=== PATIENT | male | born 1980 | race Caucasian/White ===

== ENCOUNTER 2020-11-18 19:27 | Inpatient (IN) | payer MEDICAID, MEDICARE ==
[~2020-11-18] VITALS: Ht 172.7 cm; Wt 74.9 kg
[2020-11-18] MEDS ORDERED: LEVETIRACETAM 500MG PREMIX 100 ML IV ONE (19:45)
[2020-11-18] MEDS ORDERED: LORAZEPAM 2MG/ML CPJ IV ONE (19:45)
[2020-11-18 21:54] LABS: BASOPHILS % 0.4 % (0.0-2.0); EOSINOPHILS % 0.7 % (0.0-5.0); HEMATOCRIT. 40.4 % (42.0-52.0); HEMOGLOBIN. 13.8 g/dL (14.0-18.0); LYMPHOCYTES % 20.9 % (20.0-50.0); MEAN CORPUSCULAR HEMOGLOBIN 27.3 pg (28.0-32.0); MEAN CORPUSCULAR VOLUME 80.3 fL (80.0-94.0); MEAN PLATELET VOLUME 8.9 fl (7.4-10.4); MONOCYTES % 7.5 % (2.0-8.0); NEUTROPHILS % 70.5 % (40.0-76.0); PLATELET 185 x1000/uL (130-400); RED BLOOD CELL COUNT 5.04 mill/uL (4.7-6.1); RED CELL DISTRIBUTION WIDTH 15.5 % (11.6-14.6)
[2020-11-18 22:02] LABS: CHLORIDE 109 mEq/L (98-107)
[2020-11-18 22:07] LABS: ETHANOL BLOOD < 10 mg/dL
[2020-11-19] VITALS (7 sets, daily range): BP systolic 123–154; BP diastolic 74–124
[2020-11-19 05:58] LABS: CLARITY URINE CLEAR (CLEAR); COLOR URINE YELLOW (YELLOW); KETONES URINE NEGATIVE (NEGATIVE); LEUKOCYTE ESTERASE URINE NEGATIVE (NEGATIVE); NITRITE URINE NEGATIVE (NEGATIVE); OCCULT BLOOD URINE NEGATIVE (NEGATIVE); PH URINE 7.5 (4.5-8.0); PROTEIN URINE TRACE (NEGATIVE); SPECIFIC GRAVITY URINE 1.019 (1.005-1.030)
[2020-11-19 06:14] LABS: *AMPHETAMINES SCREEN URINE NEGATIVE (NEGATIVE)
[2020-11-19 06:15] LABS: *BARBITURATES SCREEN URINE NEGATIVE (NEGATIVE); *BENZODIAZEPINES SCREEN URINE NEGATIVE (NEGATIVE); *COCAINE SCREEN URINE NEGATIVE (NEGATIVE); METHADONE URINE SCREEN NEGATIVE (NEGATIVE); OPIATES URINE SCREEN NEGATIVE (NEGATIVE); PHENCYCLIDINE URINE SCREEN NEGATIVE (NEGATIVE)
[2020-11-19 06:16] LABS: CANNABINOID URINE SCREEN PRESUMTIVE POSITIVE (NEGATIVE)
[2020-11-19] MEDS: LORAZEPAM 2MG/ML CPJ IV NR ×2 (09:37→11:55)
[2020-11-19] MEDS ORDERED: OMEPRAZOLE 20MG CAPSULE EXTENDED RELEASE PO SCH (10:30)
[2020-11-19] MEDS ORDERED: LEVETIRACETAM 500MG TABLET PO SCH (10:30)
[2020-11-19] MEDS ORDERED: ONDANSETRON HCL 4MG/2ML INJ IV PRN (10:45)
[2020-11-19] MEDS ORDERED: ACETAMINOPHEN 325MG TABLET PO PRN (10:45)
[2020-11-19] MEDS ORDERED: DEXT 5%/0.45% NACL 1000ML 1,000 ML IV SCH (10:45)
[2020-11-19] MEDS ORDERED: LORAZEPAM 2MG/ML CPJ IV PRN (10:45)
[2020-11-19] MEDS ORDERED: LEVETIRACETAM 250 MG in SODIUM CHLORIDE 0.9% 100 ML IV SCH (11:30)
[2020-11-19] MEDS ORDERED: LEVETIRACETAM 1000MG PREMIX 100 ML IV SCH (13:00)
== END 2020-11-19 14:30 | disposition left against medical advice (07) | DRG 53 ==
LOC: ER 19:27 → EDBD 19:27 → 6EST 11-19 02:10 → ENRESERV 11-19 07:34 → 6EST 11-19 09:14 → 5EST 11-19 10:24
PROVIDERS: ADMIT Internal Medicine; ATTEND Internal Medicine
DX: G40.909 Epilepsy, unspecified, not intractable, without status epilepticus (principal); K85.90 Acute pancreatitis without necrosis or infection, unspecified; F12.90 Cannabis use, unspecified, uncomplicated; Z53.21 Procedure and treatment not carried out due to patient leaving prior to being seen by health care provider; Z82.49 Family history of ischemic heart disease and other diseases of the circulatory system; Z91.19 Patient's noncompliance with other medical treatment and regimen
CPT/HCPCS: 36415; 74176; 80053; 80305; 80307; 80320; 80329; 81003; 83605; 84484; 85025; 93005; 99285; C1893; J1953; J2060; J2405; G0480

== ENCOUNTER 2020-11-20 02:56 | Emergency (ER) | payer MEDICAID ==
[~2020-11-20] VITALS: Ht 170.2 cm; Wt 82.0 kg
[2020-11-20 03:47] LABS: BASOPHILS % 0.4 % (0.0-2.0); EOSINOPHILS % 0.4 % (0.0-5.0); HEMATOCRIT. 44.5 % (42.0-52.0); HEMOGLOBIN. 14.5 g/dL (14.0-18.0); LYMPHOCYTES % 16.7 % (20.0-50.0); MEAN CORPUSCULAR HEMOGLOBIN 26.6 pg (28.0-32.0); MEAN PLATELET VOLUME 8.3 fl (7.4-10.4); MONOCYTES % 6.3 % (2.0-8.0); NEUTROPHILS % 76.2 % (40.0-76.0); PLATELET 222 x1000/uL (130-400); RED BLOOD CELL COUNT 5.43 mill/uL (4.7-6.1); RED CELL DISTRIBUTION WIDTH 15.8 % (11.6-14.6)
[2020-11-20 03:54] LABS: CHLORIDE 103 mEq/L (98-107)
[2020-11-20 03:57] LABS: ETHANOL BLOOD < 10 mg/dL; INR 1.1; PROTHROMBIN TIME 11.7 sec (9.6-11.0)
[2020-11-20] MEDS: FAMOTIDINE 20MG/2ML VIAL IV STA (04:20)
[2020-11-20] MEDS: KETOROLAC 30MG/ML VIAL IV STA (04:20)
[2020-11-20] MEDS: LORAZEPAM 2MG/ML CPJ IV ONE ×2 (04:21)
[2020-11-20] MEDS: SODIUM CHLORIDE 0.9% 1,000 ML IV ONE (04:21)
[2020-11-20] MEDS: LEVETIRACETAM 1000MG PREMIX 100 ML IV NR (05:21)
[2020-11-20] MEDS: ACETAMINOPHEN 325MG TABLET PO ONE (12:30)
[2020-11-20 18:34] VITALS: BP 129/76
== END 2020-11-20 18:44 | disposition left against medical advice (07) ==
LOC: ER 03:02 → EDBEDREQTM 04:21 → EDBEDREQ 05:35 → EDBEDREQTM 05:35 → CANBEDREQ 18:42 → ER 18:44
DX: R56.9 Unspecified convulsions (principal); K85.90 Acute pancreatitis without necrosis or infection, unspecified
CPT/HCPCS: 36415; 70450; 71045; 74018; 80053; 80320; 82962; 83690; 85025; 85610; 96361; 96374; 96375; 99291; J1885; J1953; J2060; J3490; J7030; Z7610; 99285; G0480

== ENCOUNTER 2021-03-08 12:43 | Emergency (ER) | payer MEDICARE ==
[~2021-03-08] VITALS: Ht 167.6 cm; Wt 118.0 kg
[~2021-03-08 12:43] MED LIST: FAMO20TA8 PO; LEVE10006 PO; LEVE250T2 PO; ONDA8TAB13 PO
[2021-03-08 13:07] VITALS: BP 155/95
== END 2021-03-08 14:52 | disposition left against medical advice (07) ==
LOC: ER 12:43
DX: Z53.21 Procedure and treatment not carried out due to patient leaving prior to being seen by health care provider (principal); R56.9 Unspecified convulsions

== ENCOUNTER 2021-03-24 09:36 | Emergency (ER) | payer MEDICARE ==
[~2021-03-24] VITALS: Ht 167.6 cm; Wt 109.0 kg
[2021-03-24] MEDS ORDERED: ONDANSETRON HCL 4MG/2ML INJ IV STA (09:55)
[2021-03-24] MEDS ORDERED: KETOROLAC 30MG/ML VIAL IV STA (09:55)
[2021-03-24] MEDS ORDERED: SODIUM CHLORIDE 0.9% 1,000 ML IV ONE (10:00)
[2021-03-24 10:41] LABS: BASOPHILS % 0.3 % (0.0-2.0); EOSINOPHILS % 0.7 % (0.0-5.0); HEMATOCRIT. 46.2 % (42.0-52.0); HEMOGLOBIN. 15.3 g/dL (14.0-18.0); LYMPHOCYTES % 13.1 % (20.0-50.0); MEAN CORPUSCULAR HEMOGLOBIN 27.3 pg (28.0-32.0); MEAN CORPUSCULAR VOLUME 82.3 fL (80.0-94.0); MEAN PLATELET VOLUME 8.5 fl (7.4-10.4); MONOCYTES % 5.4 % (2.0-8.0); NEUTROPHILS % 80.5 % (40.0-76.0); PLATELET 193 x1000/uL (130-400); RED BLOOD CELL COUNT 5.62 mill/uL (4.7-6.1); RED CELL DISTRIBUTION WIDTH 15.4 % (11.6-14.6)
[2021-03-24 10:48] LABS: CHLORIDE 103 mEq/L (98-107)
[2021-03-24 10:54] LABS: ETHANOL BLOOD < 10 mg/dL
[2021-03-24] MEDS ORDERED: DICYCLOMINE HCL 10MG/ML 2ML AMP IM ONE (11:15)
[2021-03-24 13:47] LABS: INR 1.1; PROTHROMBIN TIME 11.3 sec (9.6-11.0)
[2021-03-24] MEDS ORDERED: OMEP20CA14 MT (14:35)
[2021-03-24 16:44] VITALS: BP 143/90
== END 2021-03-24 16:40 | disposition home or self-care (01) ==
LOC: ER 09:46
DX: R10.9 Unspecified abdominal pain (principal); R11.10 Vomiting, unspecified; R56.9 Unspecified convulsions
CPT/HCPCS: 36415; 80053; 80320; 83690; 85025; 85610; 96361; 96372; 96374; 96375; 99285; J0500; J1885; J2405; J7030; G0480

== ENCOUNTER 2021-03-28 12:25 | Emergency (ER) | payer MEDICARE ==
[~2021-03-28] VITALS: Ht 170.2 cm; Wt 170.0 kg
[~2021-03-28 12:25] MED LIST changes: +OMEP20CA14 MT
[2021-03-28 12:30] VITALS: BP 138/91
[2021-03-28] MEDS ORDERED: FAMOTIDINE 20MG/2ML VIAL IV STA (15:36)
[2021-03-28] MEDS ORDERED: SODIUM CHLORIDE 0.9% 1,000 ML IV ONE (15:45)
[2021-03-28] MEDS ORDERED: HALOPERIDOL LACTATE 5MG/ML VIAL IM ONE (15:45)
== END 2021-03-28 15:40 | disposition left against medical advice (07) ==
LOC: ER 12:25
DX: R10.84 Generalized abdominal pain (principal); R11.10 Vomiting, unspecified; Z53.21 Procedure and treatment not carried out due to patient leaving prior to being seen by health care provider
CPT/HCPCS: J7030

== ENCOUNTER 2021-04-05 10:11 | Emergency (ER) | payer MEDICARE ==
[~2021-04-05] VITALS: Ht 167.6 cm; Wt 84.0 kg
[2021-04-05] MEDS ORDERED: MORPHINE SULFATE 4 MG/ML CPJ (NOT FOR IM USE) IV STA (10:36)
[2021-04-05] MEDS ORDERED: ONDANSETRON HCL 4MG/2ML INJ IV STA (10:36)
[2021-04-05] MEDS ORDERED: SODIUM CHLORIDE 0.9% 1,000 ML IV ONE (10:45)
[2021-04-05 10:50] LABS: BASOPHILS % 0.6 % (0.0-2.0); EOSINOPHILS % 1.8 % (0.0-5.0); HEMATOCRIT. 47.8 % (42.0-52.0); HEMOGLOBIN. 15.8 g/dL (14.0-18.0); LYMPHOCYTES % 24.5 % (20.0-50.0); MEAN CORPUSCULAR HEMOGLOBIN 27.3 pg (28.0-32.0); MEAN CORPUSCULAR VOLUME 82.7 fL (80.0-94.0); MEAN PLATELET VOLUME 8.4 fl (7.4-10.4); MONOCYTES % 5.9 % (2.0-8.0); NEUTROPHILS % 67.2 % (40.0-76.0); PLATELET 189 x1000/uL (130-400); RED BLOOD CELL COUNT 5.78 mill/uL (4.7-6.1); RED CELL DISTRIBUTION WIDTH 15.7 % (11.6-14.6)
[2021-04-05 10:56] LABS: CHLORIDE 105 mEq/L (98-107)
[2021-04-05 11:02] LABS: ETHANOL BLOOD < 10 mg/dL
[2021-04-05 15:00] VITALS: BP 105/56
== END 2021-04-05 15:05 | disposition home or self-care (01) ==
LOC: ER 10:14
DX: R10.9 Unspecified abdominal pain (principal); R19.7 Diarrhea, unspecified; R56.9 Unspecified convulsions
CPT/HCPCS: 36415; 80053; 80320; 83690; 85025; 93005; 96361; 96374; 96375; 99284; J2270; J2405; J7030; G0480

== ENCOUNTER 2021-04-13 10:33 | Emergency (ER) | payer MEDICARE ==
[~2021-04-13] VITALS: Ht 172.7 cm; Wt 75.0 kg
[2021-04-13 10:41] VITALS: BP 162/127
[2021-04-13] MEDS ORDERED: FAMOTIDINE 20MG/2ML VIAL IV STA (11:10)
[2021-04-13] MEDS ORDERED: ONDANSETRON HCL 4MG/2ML INJ IV STA (11:10)
[2021-04-13] MEDS ORDERED: SODIUM CHLORIDE 0.9% 1,000 ML IV ONE (11:15)
[2021-04-13 11:30] LABS: BASOPHILS % 0.7 % (0.0-2.0); EOSINOPHILS % 1.4 % (0.0-5.0); HEMATOCRIT. 43.4 % (42.0-52.0); HEMOGLOBIN. 14.3 g/dL (14.0-18.0); LYMPHOCYTES % 21.9 % (20.0-50.0); MEAN CORPUSCULAR HEMOGLOBIN 27.4 pg (28.0-32.0); MEAN PLATELET VOLUME 8.7 fl (7.4-10.4); MONOCYTES % 7.3 % (2.0-8.0); NEUTROPHILS % 68.7 % (40.0-76.0); PLATELET 162 x1000/uL (130-400); RED BLOOD CELL COUNT 5.23 mill/uL (4.7-6.1); RED CELL DISTRIBUTION WIDTH 15.5 % (11.6-14.6)
[2021-04-13 11:44] LABS: CHLORIDE 107 mEq/L (98-107)
== END 2021-04-13 12:20 | disposition left against medical advice (07) ==
LOC: ER 10:33
DX: R10.9 Unspecified abdominal pain (principal); R11.2 Nausea with vomiting, unspecified; F41.9 Anxiety disorder, unspecified; R56.9 Unspecified convulsions
CPT/HCPCS: 36415; 80053; 83690; 85025; 93005; 99284; J7030

== ENCOUNTER 2021-04-21 11:44 | Emergency (ER) | payer MEDICARE ==
[~2021-04-21] VITALS: Ht 172.7 cm; Wt 85.0 kg
[2021-04-21] MEDS ORDERED: ONDANSETRON HCL 4MG/2ML INJ IV STA (12:27)
[2021-04-21] MEDS ORDERED: MORPHINE SULFATE 4 MG/ML CPJ (NOT FOR IM USE) IV STA (12:27)
[2021-04-21] MEDS ORDERED: SODIUM CHLORIDE 0.9% 1,000 ML IV ONE ×2 (12:30→15:00)
[2021-04-21 12:44] LABS: BASOPHILS % 0.7 % (0.0-2.0); EOSINOPHILS % 1.1 % (0.0-5.0); HEMATOCRIT. 47.3 % (42.0-52.0); HEMOGLOBIN. 15.3 g/dL (14.0-18.0); LYMPHOCYTES % 21.6 % (20.0-50.0); MEAN CORPUSCULAR HEMOGLOBIN 27.1 pg (28.0-32.0); MEAN CORPUSCULAR VOLUME 84.1 fL (80.0-94.0); MEAN PLATELET VOLUME 9.2 fl (7.4-10.4); MONOCYTES % 4.8 % (2.0-8.0); NEUTROPHILS % 71.8 % (40.0-76.0); PLATELET 242 x1000/uL (130-400); RED BLOOD CELL COUNT 5.62 mill/uL (4.7-6.1); RED CELL DISTRIBUTION WIDTH 15.9 % (11.6-14.6)
[2021-04-21 12:50] LABS: CHLORIDE 107 mEq/L (98-107)
[2021-04-21] MEDS ORDERED: KETOROLAC 30MG/ML VIAL IV ONE (15:00)
[2021-04-21] MEDS ORDERED: IBUP-2028 MT (17:54)
[2021-04-21 18:00] VITALS: BP 134/74
== END 2021-04-21 19:04 | disposition home or self-care (01) ==
LOC: ER 11:44
DX: K86.1 Other chronic pancreatitis (principal); F12.10 Cannabis abuse, uncomplicated; Z87.19 Personal history of other diseases of the digestive system; Z86.59 Personal history of other mental and behavioral disorders
CPT/HCPCS: 36415; 80053; 80320; 82248; 83690; 85025; 96361; 96374; 96375; 99285; J1885; J2270; J2405; J7030; 80076; G0480

== ENCOUNTER 2021-04-24 07:52 | Emergency (ER) | payer MEDICARE, MEDICAID ==
[~2021-04-24] VITALS: Ht 167.6 cm; Wt 91.0 kg
[~2021-04-24 07:52] MED LIST changes: +IBUP-2028 MT
[2021-04-24] MEDS ORDERED: ONDANSETRON HCL 4MG/2ML INJ IV STA (08:08)
[2021-04-24] MEDS ORDERED: HALOPERIDOL LACTATE 5MG/ML VIAL IM ONE (08:15)
[2021-04-24] MEDS ORDERED: ACETAMINOPHEN 325MG TABLET PO ONE (08:15)
[2021-04-24] MEDS ORDERED: SODIUM CHLORIDE 0.9% 1,000 ML IV ONE (08:15)
[2021-04-24] MEDS ORDERED: KETOROLAC 15MG/ML VIAL IV ONE (08:15)
[2021-04-24 08:33] LABS: BASOPHILS % 0.4 % (0.0-2.0); EOSINOPHILS % 1.9 % (0.0-5.0); HEMATOCRIT. 44.3 % (42.0-52.0); HEMOGLOBIN. 14.4 g/dL (14.0-18.0); MEAN CORPUSCULAR VOLUME 83.2 fL (80.0-94.0); MEAN PLATELET VOLUME 8.5 fl (7.4-10.4); MONOCYTES % 5.8 % (2.0-8.0); NEUTROPHILS % 74.9 % (40.0-76.0); PLATELET 171 x1000/uL (130-400); RED BLOOD CELL COUNT 5.32 mill/uL (4.7-6.1); RED CELL DISTRIBUTION WIDTH 15.8 % (11.6-14.6)
[2021-04-24 08:36] LABS: CHLORIDE 104 mEq/L (98-107)
[2021-04-24 08:55] VITALS: BP 138/79
== END 2021-04-24 09:55 | disposition left against medical advice (07) ==
LOC: ER 07:52
DX: G89.29 Other chronic pain (principal); R10.13 Epigastric pain; K86.1 Other chronic pancreatitis; F41.9 Anxiety disorder, unspecified; G40.909 Epilepsy, unspecified, not intractable, without status epilepticus; F12.10 Cannabis abuse, uncomplicated
CPT/HCPCS: 36415; 80053; 83690; 85025; 93005; 96361; 96372; 96374; 96375; 99284; J1630; J1885; J2405

== ENCOUNTER 2021-04-29 22:20 | Inpatient (IN) | payer MEDICAID ==
[~2021-04-29] VITALS: Ht 172.7 cm; Wt 89.8 kg
[2021-04-30] VITALS (7 sets, daily range): BP systolic 102–146; BP diastolic 60–96
[2021-04-30] MEDS ORDERED: ONDANSETRON HCL 4MG/2ML INJ IV ONE ×3 (00:45→03:00)
[2021-04-30] MEDS ORDERED: LEVETIRACETAM 1000MG PREMIX 100 ML IV ONE (00:45)
[2021-04-30] MEDS ORDERED: SODIUM CHLORIDE 0.9% 1,000 ML IV ONE (00:45)
[2021-04-30 00:57] LABS: BASOPHILS % 0.3 % (0.0-2.0); EOSINOPHILS % 0.4 % (0.0-5.0); HEMATOCRIT. 46.4 % (42.0-52.0); HEMOGLOBIN. 15.4 g/dL (14.0-18.0); LYMPHOCYTES % 10.5 % (20.0-50.0); MEAN CORPUSCULAR HEMOGLOBIN 27.6 pg (28.0-32.0); MEAN CORPUSCULAR VOLUME 83.3 fL (80.0-94.0); MEAN PLATELET VOLUME 8.6 fl (7.4-10.4); MONOCYTES % 5.3 % (2.0-8.0); NEUTROPHILS % 83.5 % (40.0-76.0); PLATELET 227 x1000/uL (130-400); RED BLOOD CELL COUNT 5.57 mill/uL (4.7-6.1); RED CELL DISTRIBUTION WIDTH 16.1 % (11.6-14.6)
[2021-04-30] MEDS ORDERED: LEVETIRACETAM 500MG PREMIX 100 ML IV ONE (01:00)
[2021-04-30] MEDS ORDERED: LORAZEPAM 2MG/ML CPJ IV ONE (01:00)
[2021-04-30] MEDS ORDERED: LEVETIRACETAM 1,000 MG in SODIUM CHLORIDE 0.9% 100 ML IV SCH (01:00)
[2021-04-30 01:02] LABS: CHLORIDE 106 mEq/L (98-107)
[2021-04-30 01:06] LABS: ETHANOL BLOOD < 10 mg/dL
[2021-04-30] MEDS: LEVETIRACETAM 500MG PREMIX 100 ML IV SCH ×2 (01:18→01:47)
[2021-04-30 01:51] LABS: CLARITY URINE CLEAR (CLEAR); COLOR URINE YELLOW (YELLOW); KETONES URINE NEGATIVE (NEGATIVE); LEUKOCYTE ESTERASE URINE NEGATIVE (NEGATIVE); NITRITE URINE NEGATIVE (NEGATIVE); OCCULT BLOOD URINE TRACE (NEGATIVE); PH URINE 5.5 (4.5-8.0); PROTEIN URINE 2+ (NEGATIVE); SPECIFIC GRAVITY URINE 1.023 (1.005-1.030)
[2021-04-30] MEDS ORDERED: MORPHINE SULFATE 4 MG/ML CPJ (NOT FOR IM USE) IV ONE ×2 (02:00→03:00)
[2021-04-30 02:03] LABS: *BENZODIAZEPINES SCREEN URINE NEGATIVE (NEGATIVE); *COCAINE SCREEN URINE NEGATIVE (NEGATIVE); CANNABINOID URINE SCREEN PRESUMTIVE POSITIVE (NEGATIVE)
[2021-04-30 02:04] LABS: *AMPHETAMINES SCREEN URINE NEGATIVE (NEGATIVE); *BARBITURATES SCREEN URINE NEGATIVE (NEGATIVE); METHADONE URINE SCREEN NEGATIVE (NEGATIVE); OPIATES URINE SCREEN NEGATIVE (NEGATIVE); PHENCYCLIDINE URINE SCREEN NEGATIVE (NEGATIVE)
[2021-04-30] MEDS ORDERED: IOHEXOL-300 100 ML BOTTLE ONE (04:40)
[2021-04-30] MEDS ORDERED: LORAZEPAM 2MG/ML CPJ IV SCH (05:00)
[2021-04-30] MEDS ORDERED: CLONIDINE 0.1MG TABLET PO PRN (06:00)
[2021-04-30] MEDS ORDERED: NALOXONE HCL 0.4MG/ML VIAL IV PRN (07:15)
[2021-04-30] MEDS: ONDANSETRON HCL 4MG/2ML INJ IV PRN (07:29)
[2021-04-30] MEDS: MORPHINE SULFATE 2 MG/ML CPJ (NOT FOR IM USE) IV PRN ×4 (07:29→21:51)
[2021-04-30] MEDS ORDERED: LORAZEPAM 2MG/ML CPJ IV NR ×2 (12:45→17:00)
[2021-04-30] MEDS ORDERED: LEVETIRACETAM 1000MG PREMIX 100 ML IV NR (13:00)
[2021-04-30] MEDS: LEVETIRACETAM 1,000 MG in SODIUM CHLORIDE 0.9% 100 ML IV SCH (13:03)
[2021-04-30] MEDS ORDERED: MAGNESIUM/ALUMINUM HYDROXIDE/SIMETHICONE 30ML UDC PO PRN (13:15)
[2021-04-30] MEDS ORDERED: DEXTROSE 50% WATER 50ML SYRINGE IV PRN ×2 (13:15)
[2021-04-30] MEDS ORDERED: HYDROCODONE/ACETAMINOPHEN 5/325MG TABLET PO PRN (13:15)
[2021-04-30] MEDS ORDERED: ACETAMINOPHEN 325MG TABLET PO PRN (13:15)
[2021-04-30] MEDS: PANTOPRAZOLE SODIUM 40 MG/VIAL IV SCH (14:54)
[2021-04-30] MEDS: ENOXAPARIN 40MG/0.4ML SYR SUBCUT SCH (14:55)
[2021-04-30] MEDS: LORAZEPAM 2MG/ML CPJ IV PRN (16:33)
[2021-04-30] MEDS: BLOOD SUGAR DIAGNOSTIC STRIP TEST SCH ×2 (17:33→21:14)
[2021-04-30] MEDS: INSULIN LISPRO 100 UNITS/ML SUBCUT SCH ×2 (18:00→21:00)
[2021-04-30] MEDS ORDERED: PHENYTOIN SODIUM 1,000 MG in SODIUM CHLORIDE 0.9% 80 ML IV NR (18:00)
[2021-04-30] MEDS ORDERED: CEFTRIAXONE 1 G PREMIX 50 ML IV SCH (18:45)
[2021-04-30] MEDS: CEFTRIAXONE 1,000 MG in DEXTROSE 5% WATER 50 ML IV SCH (21:14)
[2021-05-01] VITALS (12 sets, daily range): BP systolic 113–144; BP diastolic 69–90
[2021-05-01] MEDS: LEVETIRACETAM 1,000 MG in SODIUM CHLORIDE 0.9% 100 ML IV SCH ×2 (00:23→09:56)
[2021-05-01] MEDS: ONDANSETRON HCL 4MG/2ML INJ IV PRN ×4 (06:13→19:25)
[2021-05-01] MEDS: MORPHINE SULFATE 2 MG/ML CPJ (NOT FOR IM USE) IV PRN ×3 (06:14→21:39)
[2021-05-01 07:27] LABS: BASOPHILS % 0.3 % (0.0-2.0); EOSINOPHILS % 1.1 % (0.0-5.0); HEMATOCRIT. 40.7 % (42.0-52.0); HEMOGLOBIN. 13.3 g/dL (14.0-18.0); LYMPHOCYTES % 27.4 % (20.0-50.0); MEAN CORPUSCULAR HEMOGLOBIN 27.3 pg (28.0-32.0); MEAN CORPUSCULAR VOLUME 83.4 fL (80.0-94.0); MEAN PLATELET VOLUME 8.7 fl (7.4-10.4); MONOCYTES % 8.8 % (2.0-8.0); NEUTROPHILS % 62.4 % (40.0-76.0); PLATELET 168 x1000/uL (130-400); RED BLOOD CELL COUNT 4.88 mill/uL (4.7-6.1); RED CELL DISTRIBUTION WIDTH 15.8 % (11.6-14.6)
[2021-05-01] MEDS: INSULIN LISPRO 100 UNITS/ML SUBCUT SCH ×4 (07:54→20:43)
[2021-05-01] MEDS: BLOOD SUGAR DIAGNOSTIC STRIP TEST SCH ×4 (07:54→20:32)
[2021-05-01 08:07] LABS: CHLORIDE 106 mEq/L (98-107)
[2021-05-01 08:17] LABS: PHOSPHORUS 2.9 mg/dL (2.5-4.9)
[2021-05-01 08:18] LABS: LDL CHOLESTEROL 91 mg/dL (5-100)
[2021-05-01 08:21] LABS: HDL CHOLESTEROL 32 mg/dL (40-59)
[2021-05-01 08:22] LABS: T4 FREE 1.04 ng/dL (0.76-1.46)
[2021-05-01] MEDS: ENOXAPARIN 40MG/0.4ML SYR SUBCUT SCH (09:00)
[2021-05-01] MEDS: PANTOPRAZOLE SODIUM 40 MG/VIAL IV SCH (09:56)
[2021-05-01] MEDS: LORAZEPAM 2MG/ML CPJ IV PRN ×3 (09:57→19:26)
[2021-05-01] MEDS: CEFTRIAXONE 1,000 MG in DEXTROSE 5% WATER 50 ML IV SCH (20:31)
[2021-05-01] MEDS: LEVETIRACETAM 1,500 MG in SODIUM CHLORIDE 0.9% 100 ML IV SCH (21:39)
[2021-05-01] MEDS: PHENYTOIN SODIUM 100MG/2ML VIAL IV SCH (21:40)
[2021-05-02] VITALS (10 sets, daily range): BP systolic 104–145; BP diastolic 53–95
[2021-05-02] MEDS: ONDANSETRON HCL 4MG/2ML INJ IV PRN (04:23)
[2021-05-02] MEDS: LORAZEPAM 2MG/ML CPJ IV PRN ×2 (04:23→11:52)
[2021-05-02] MEDS: MORPHINE SULFATE 2 MG/ML CPJ (NOT FOR IM USE) IV PRN ×2 (04:24→12:15)
[2021-05-02] MEDS: PHENYTOIN SODIUM 100MG/2ML VIAL IV SCH ×2 (05:33→14:07)
[2021-05-02 06:25] LABS: BASOPHILS % 0.5 % (0.0-2.0); EOSINOPHILS % 1.9 % (0.0-5.0); HEMATOCRIT. 41.2 % (42.0-52.0); HEMOGLOBIN. 13.7 g/dL (14.0-18.0); LYMPHOCYTES % 33.4 % (20.0-50.0); MEAN CORPUSCULAR HEMOGLOBIN 27.7 pg (28.0-32.0); MEAN CORPUSCULAR VOLUME 83.4 fL (80.0-94.0); MEAN PLATELET VOLUME 8.9 fl (7.4-10.4); MONOCYTES % 9.2 % (2.0-8.0); PLATELET 177 x1000/uL (130-400); RED BLOOD CELL COUNT 4.94 mill/uL (4.7-6.1); RED CELL DISTRIBUTION WIDTH 15.8 % (11.6-14.6)
[2021-05-02 06:29] LABS: CHLORIDE 105 mEq/L (98-107)
[2021-05-02 06:37] LABS: PHOSPHORUS 2.7 mg/dL (2.5-4.9)
[2021-05-02] MEDS: INSULIN LISPRO 100 UNITS/ML SUBCUT SCH ×3 (07:38→17:10)
[2021-05-02] MEDS: BLOOD SUGAR DIAGNOSTIC STRIP TEST SCH ×3 (07:38→17:10)
[2021-05-02] MEDS: LEVETIRACETAM 1,500 MG in SODIUM CHLORIDE 0.9% 100 ML IV SCH (08:26)
[2021-05-02] MEDS ORDERED: FAMOTIDINE 20MG/2ML VIAL IV SCH (09:00)
[2021-05-02] MEDS: ENOXAPARIN 40MG/0.4ML SYR SUBCUT SCH (09:40)
[2021-05-02] MEDS ORDERED: PHENYTOIN SODIUM 300 MG in SODIUM CHLORIDE 0.9% 50 ML IV NR (13:30)
[2021-05-02] MEDS ORDERED: ENOXAPARIN 30MG/0.3ML SYR SUBCUT SCH (21:00)
[2021-05-02] MEDS ORDERED: LEVETIRACETAM 500MG TABLET PO SCH (21:00)
[2021-05-02] MEDS ORDERED: PHENYTOIN SODIUM EXTENDED 100MG CAPSULE PO SCH (22:00)
== END 2021-05-02 18:25 | disposition left against medical advice (07) | DRG 53 ==
LOC: ER 22:20 → MICUSO 04-30 05:01 → 8WST 04-30 09:15 → 5EST 04-30 16:14
PROVIDERS: ADMIT Internal Medicine; ATTEND Internal Medicine
PROC: 4A10X4Z Monitoring of Central Nervous Electrical Activity, External Approach (ICD-10-PCS; principal; 2021-05-02)
DX: G40.804 Other epilepsy, intractable, without status epilepticus (principal); H70.91 Unspecified mastoiditis, right ear; R16.0 Hepatomegaly, not elsewhere classified; E11.65 Type 2 diabetes mellitus with hyperglycemia; F41.9 Anxiety disorder, unspecified; J32.9 Chronic sinusitis, unspecified; K86.1 Other chronic pancreatitis; Z53.29 Procedure and treatment not carried out because of patient's decision for other reasons; N62 Hypertrophy of breast; Z79.899 Other long term (current) drug therapy
CPT/HCPCS: 36415; 70551; 71045; 74177; 80048; 80053; 80061; 80076; 80185; 80305; 80320; 81003; 82962; 83036; 83735; 84100; 84145; 84439; 84443; 84484; 85025; 93005; 93970; 95816; 99285; C9113; J0696; J1165; J1650; J1953; J2060; J2270; J2405; J3490; J7030; J7040; J7050; J7060; Q9967; G0480

== ENCOUNTER 2021-05-05 11:19 | Inpatient (IN) | payer MEDICAID ==
[~2021-05-05] VITALS: Ht 167.6 cm; Wt 87.1 kg
[2021-05-05] MEDS ORDERED: ONDANSETRON HCL 4MG/2ML INJ IV STA (11:25)
[2021-05-05] MEDS ORDERED: FAMOTIDINE 20MG/2ML VIAL IV STA (11:25)
[2021-05-05] MEDS ORDERED: LORAZEPAM 2MG/ML CPJ IV ONE ×3 (11:30→14:15)
[2021-05-05] MEDS ORDERED: SODIUM CHLORIDE 0.9% 1,000 ML IV ONE (11:30)
[2021-05-05 11:58] LABS: BASOPHILS % 0.7 % (0.0-2.0); EOSINOPHILS % 2.1 % (0.0-5.0); HEMATOCRIT. 51.2 % (42.0-52.0); HEMOGLOBIN. 16.9 g/dL (14.0-18.0); LYMPHOCYTES % 28.5 % (20.0-50.0); MEAN CORPUSCULAR HEMOGLOBIN 27.5 pg (28.0-32.0); MEAN CORPUSCULAR VOLUME 83.6 fL (80.0-94.0); MEAN PLATELET VOLUME 8.8 fl (7.4-10.4); MONOCYTES % 6.8 % (2.0-8.0); NEUTROPHILS % 61.9 % (40.0-76.0); PLATELET 260 x1000/uL (130-400); RED BLOOD CELL COUNT 6.13 mill/uL (4.7-6.1); RED CELL DISTRIBUTION WIDTH 15.6 % (11.6-14.6)
[2021-05-05 12:03] LABS: CHLORIDE 101 mEq/L (98-107)
[2021-05-05 12:12] LABS: ETHANOL BLOOD < 10 mg/dL
[2021-05-05 13:33] LABS: CLARITY URINE CLEAR (CLEAR); COLOR URINE YELLOW (YELLOW); KETONES URINE NEGATIVE (NEGATIVE); LEUKOCYTE ESTERASE URINE NEGATIVE (NEGATIVE); NITRITE URINE NEGATIVE (NEGATIVE); OCCULT BLOOD URINE TRACE (NEGATIVE); PH URINE 7.5 (4.5-8.0); PROTEIN URINE 2+ (NEGATIVE); SPECIFIC GRAVITY URINE 1.018 (1.005-1.030); UROBILINOGEN URINE 0.2 E.U./dL (0.2-1.0)
[2021-05-05 13:58] LABS: *AMPHETAMINES SCREEN URINE NEGATIVE (NEGATIVE); *BARBITURATES SCREEN URINE NEGATIVE (NEGATIVE); *BENZODIAZEPINES SCREEN URINE NEGATIVE (NEGATIVE); *COCAINE SCREEN URINE NEGATIVE (NEGATIVE)
[2021-05-05 13:59] LABS: CANNABINOID URINE SCREEN PRESUMTIVE POSITIVE (NEGATIVE); METHADONE URINE SCREEN NEGATIVE (NEGATIVE); OPIATES URINE SCREEN NEGATIVE (NEGATIVE); PHENCYCLIDINE URINE SCREEN NEGATIVE (NEGATIVE)
[2021-05-05] MEDS ORDERED: KETOROLAC 30MG/ML VIAL IV ONE (14:15)
[2021-05-05] MEDS ORDERED: DICYCLOMINE HCL 10MG/ML 2ML VIAL IM ONE (14:15)
[2021-05-05] MEDS ORDERED: METOCLOPRAMIDE HCL 10MG/2ML VIAL IV ONE (15:15)
[2021-05-05] MEDS ORDERED: MORPHINE SULFATE 4 MG/ML CPJ (NOT FOR IM USE) IV ONE (15:15)
[2021-05-05] MEDS ORDERED: METOCLOPRAMIDE HCL 10MG/2ML VIAL IV NR (20:30)
[2021-05-05 22:00] VITALS: BP 180/88
[2021-05-05 22:18] VITALS: BP 180/88
[2021-05-05] MEDS ORDERED: NALOXONE HCL 0.4MG/ML VIAL IV PRN (23:00)
[2021-05-05] MEDS ORDERED: ONDANSETRON HCL 4MG/2ML INJ IV PRN (23:00)
[2021-05-05] MEDS ORDERED: CLONIDINE 0.1MG TABLET PO PRN (23:00)
[2021-05-06] VITALS (7 sets, daily range): BP systolic 133–152; BP diastolic 85–99
[2021-05-06] MEDS: HYDROCODONE/ACETAMINOPHEN 5/325MG TABLET PO PRN ×3 (00:18→16:52)
[2021-05-06] MEDS ORDERED: OMEPRAZOLE 20MG CAPSULE EXTENDED RELEASE PO SCH (07:20)
[2021-05-06] MEDS ORDERED: PNEUMOCOCCAL 23-VAL P-SAC VAC 0.5 ML IM ONE (08:00)
[2021-05-06] MEDS ORDERED: LEVETIRACETAM 500MG TABLET PO SCH ×2 (09:00→21:00)
[2021-05-06] MEDS: DOCUSATE SODIUM 250MG CAPSULE PO SCH ×2 (09:03→17:00)
[2021-05-06] MEDS: LORAZEPAM 2MG/ML CPJ IV PRN ×2 (09:03→17:44)
[2021-05-06] MEDS ORDERED: INFLUENZA VACCINE 05/PF 0.5 ML SYRINGE IM ONE (10:00)
[2021-05-06] MEDS ORDERED: PHENYTOIN SODIUM EXTENDED 100MG CAPSULE PO NR (14:50)
[2021-05-06] MEDS ORDERED: PHENYTOIN SODIUM EXTENDED 100MG CAPSULE PO SCH (21:00)
== END 2021-05-06 20:00 | disposition home or self-care (01) | DRG 249 ==
LOC: ER 11:19 → EDBEDREQ 18:08 → EDBEDREQSVC 18:08 → ENRESERV 20:09 → 6WST 21:47
PROVIDERS: ADMIT Internal Medicine; ATTEND Internal Medicine
DX: R11.2 Nausea with vomiting, unspecified (principal); F12.10 Cannabis abuse, uncomplicated; G89.29 Other chronic pain; G40.909 Epilepsy, unspecified, not intractable, without status epilepticus; F41.9 Anxiety disorder, unspecified; Z79.1 Long term (current) use of non-steroidal anti-inflammatories (NSAID); Z79.899 Other long term (current) drug therapy; Z91.19 Patient's noncompliance with other medical treatment and regimen; Z87.19 Personal history of other diseases of the digestive system; G51.0 Bell's palsy
CPT/HCPCS: 36415; 71045; 80053; 80305; 80320; 81003; 83036; 85025; 90686; 90732; 93005; 99291; J0500; J1885; J2060; J2270; J2405; J2765; J3490; J7030; G0480

== ENCOUNTER 2021-06-09 18:47 | Inpatient (IN) | payer MEDICAID ==
[~2021-06-09] VITALS: Ht 167.6 cm; Wt 79.4 kg
[~2021-06-09 18:47] MED LIST changes: -IBUP-2028 MT; +SUCCINYLCHOLINE CHLORIDE 200MG/10ML IV ONE
[2021-06-09] MEDS ORDERED: SODIUM CHLORIDE 0.9% 1,000 ML IV ONE (19:30)
[2021-06-09] MEDS ORDERED: LEVETIRACETAM 500MG PREMIX 100 ML IV ONE (19:45)
[2021-06-09] MEDS ORDERED: LORAZEPAM 2MG/ML CPJ IV ONE ×2 (19:45→20:00)
[2021-06-09] MEDS ORDERED: PROPOFOL 10MG/ML 100ML 100 ML IV SCH (20:00)
[2021-06-09] MEDS ORDERED: SUCCINYLCHOLINE CHLORIDE 200MG/10ML IV ONE (20:00)
[2021-06-09] MEDS ORDERED: SODIUM CHLORIDE 0.9% IV NR (20:00)
[2021-06-09] MEDS ORDERED: VALPROATE SODIUM IV NR (20:00)
[2021-06-09] MEDS ORDERED: VALPROATE SODIUM 1,500 MG in SODIUM CHLORIDE 0.9% 100 ML IV NR (20:01)
[2021-06-09 20:04] LABS: BASOPHILS % 0.3 % (0.0-2.0); EOSINOPHILS % 0.7 % (0.0-5.0); HEMATOCRIT. 44.7 % (42.0-52.0); HEMOGLOBIN. 14.9 g/dL (14.0-18.0); LYMPHOCYTES % 10.5 % (20.0-50.0); MEAN CORPUSCULAR HEMOGLOBIN 27.3 pg (28.0-32.0); MEAN PLATELET VOLUME 8.9 fl (7.4-10.4); NEUTROPHILS % 83.5 % (40.0-76.0); PLATELET 207 x1000/uL (130-400); RED BLOOD CELL COUNT 5.45 mill/uL (4.7-6.1); RED CELL DISTRIBUTION WIDTH 15.1 % (11.6-14.6)
[2021-06-09 20:14] LABS: CHLORIDE 105 mEq/L (98-107)
[2021-06-09 20:17] LABS: ETHANOL BLOOD < 10 mg/dL
[2021-06-09] MEDS ORDERED: MIDAZOLAM 100MG/100ML PMX 100 ML IV PRN (21:00)
[2021-06-09] MEDS ORDERED: KETAMINE HCL 50 MG/ML 10ML IV ONE (22:00)
[2021-06-09 22:19] LABS: BG BASE EXCESS -3.6 mmol/L (-2.0-2.0); BG CARBOXYHEMOGLOBIN 0.3 % (0.5-1.5); BG DEOXYHEMOGLOBIN 0.3 % (0.0-5.0); BG FRACTION INSPIRED OXYGEN 100; BG HCO3 ACT 21.6 mmol/L (22.0-26.0); BG METHEMOGLOBIN 0.1 % (0.0-1.5); BG OXYGEN SATURATION 99.7 % (92.0-98.5); BG OXYHEMOGLOBIN 99.3 % (94.0-97.0); BG PCO2 39.4 mmHg (35.0-45.0); BG PH 7.356 (7.350-7.450); BG PO2 504.2 mmHg (75.0-100.0); BG SAMPLE SITE LEFT RADIAL; BG VENT MODE VENT - AC
[2021-06-09] MEDS ORDERED: SODIUM CHLORIDE 0.9% 1000ML BAG (SEPSIS BOLUS) IV ONE (23:00)
[2021-06-10 00:41] LABS: CLARITY URINE CLEAR (CLEAR); COLOR URINE YELLOW (YELLOW); KETONES URINE TRACE (NEGATIVE); LEUKOCYTE ESTERASE URINE NEGATIVE (NEGATIVE); NITRITE URINE NEGATIVE (NEGATIVE); OCCULT BLOOD URINE 2+ (NEGATIVE); PH URINE 6.5 (4.5-8.0); PROTEIN URINE 3+ (NEGATIVE); SPECIFIC GRAVITY URINE 1.021 (1.005-1.030); UROBILINOGEN URINE 0.2 E.U./dL (0.2-1.0)
[2021-06-10] MEDS ORDERED: PROPOFOL 10MG/ML 100ML 100 ML IV SCH (00:45)
[2021-06-10 01:14] LABS: *AMPHETAMINES SCREEN URINE NEGATIVE (NEGATIVE); *BARBITURATES SCREEN URINE NEGATIVE (NEGATIVE); *BENZODIAZEPINES SCREEN URINE PRESUMTIVE POSITIVE (NEGATIVE); *COCAINE SCREEN URINE NEGATIVE (NEGATIVE)
[2021-06-10 01:15] LABS: CANNABINOID URINE SCREEN PRESUMTIVE POSITIVE (NEGATIVE); METHADONE URINE SCREEN NEGATIVE (NEGATIVE); OPIATES URINE SCREEN NEGATIVE (NEGATIVE); PHENCYCLIDINE URINE SCREEN NEGATIVE (NEGATIVE)
[2021-06-10] MEDS: MIDAZOLAM HCL 100 MG in SODIUM CHLORIDE 0.9% 100 ML IV PRN (05:42)
[2021-06-10] MEDS ORDERED: NOREPINEPHRINE 8MG/250ML PMX 250 ML IV ONE (07:56)
[2021-06-10] MEDS: LEVETIRACETAM 1000MG PREMIX 100 ML IV SCH ×2 (09:32→21:00)
[2021-06-10 10:33] LABS: BG BASE EXCESS 0.3 mmol/L (-2.0-2.0); BG CARBOXYHEMOGLOBIN 0.4 % (0.5-1.5); BG DEOXYHEMOGLOBIN 2.1 % (0.0-5.0); BG FRACTION INSPIRED OXYGEN 40; BG HCO3 ACT 24.4 mmol/L (22.0-26.0); BG METHEMOGLOBIN 0.3 % (0.0-1.5); BG OXYGEN SATURATION 97.9 % (92.0-98.5); BG OXYHEMOGLOBIN 97.2 % (94.0-97.0); BG PCO2 38.2 mmHg (35.0-45.0); BG PH 7.424 (7.350-7.450); BG PO2 101.1 mmHg (75.0-100.0); BG SAMPLE SITE RIGHT RADIAL; BG TOTAL HEMOGLOBIN 14.7 g/dL (12.0-18.0); BG VENT MODE VENT - AC
[2021-06-10] MEDS ORDERED: MIDAZOLAM HCL 100 MG in SODIUM CHLORIDE 0.9% 80 ML IV PRN (11:45)
[2021-06-10] MEDS ORDERED: FENTANYL CITRATE/PF 2,500 MCG in SODIUM CHLORIDE 0.9% 200 ML IV PRN (11:45)
[2021-06-11] VITALS (18 sets, daily range): BP systolic 115–153; BP diastolic 73–107
[2021-06-11 03:53] LABS: BASOPHILS % 0.5 % (0.0-2.0); EOSINOPHILS % 1.1 % (0.0-5.0); HEMATOCRIT. 42.1 % (42.0-52.0); HEMOGLOBIN. 14.3 g/dL (14.0-18.0); LYMPHOCYTES % 12.6 % (20.0-50.0); MEAN CORPUSCULAR VOLUME 82.5 fL (80.0-94.0); MEAN PLATELET VOLUME 8.7 fl (7.4-10.4); NEUTROPHILS % 78.8 % (40.0-76.0); PLATELET 173 x1000/uL (130-400); RED CELL DISTRIBUTION WIDTH 15.2 % (11.6-14.6)
[2021-06-11 03:57] LABS: CHLORIDE 107 mEq/L (98-107)
[2021-06-11] MEDS: LEVETIRACETAM 1000MG PREMIX 100 ML IV SCH (09:00)
[2021-06-11 10:03] LABS: BG BASE EXCESS 0.1 mmol/L (-2.0-2.0); BG CARBOXYHEMOGLOBIN 1.4 % (0.5-1.5); BG DEOXYHEMOGLOBIN 5.4 % (0.0-5.0); BG FRACTION INSPIRED OXYGEN 40; BG HCO3 ACT 24.7 mmol/L (22.0-26.0); BG METHEMOGLOBIN 0.1 % (0.0-1.5); BG OXYGEN SATURATION 94.5 % (92.0-98.5); BG OXYHEMOGLOBIN 93.1 % (94.0-97.0); BG PCO2 40.2 mmHg (35.0-45.0); BG PH 7.407 (7.350-7.450); BG PO2 68.1 mmHg (75.0-100.0); BG SAMPLE SITE RIGHT RADIAL; BG TOTAL HEMOGLOBIN 14.8 g/dL (12.0-18.0); BG VENT MODE VENT - AC
[2021-06-11] MEDS ORDERED: IPRATROPIUM/ALBUTEROL 0.5-3(2.5)MG/3ML NEB HHN PRN (15:30)
[2021-06-11] MEDS: ENOXAPARIN 40MG/0.4ML SYR SUBCUT SCH (16:00)
[2021-06-11] MEDS: PIPERACILLIN/TAZOBACTAM 3.375 G in DEXTROSE 5% WATER 50 ML IV SCH ×2 (16:00→23:00)
[2021-06-11] MEDS: PANTOPRAZOLE SODIUM 40 MG/VIAL IV SCH (16:00)
[2021-06-11] MEDS: PROPOFOL 10MG/ML 100ML 100 ML IV SCH ×2 (20:22→23:00)
[2021-06-11] MEDS: MIDAZOLAM HCL 100 MG in SODIUM CHLORIDE 0.9% 100 ML IV PRN (20:23)
[2021-06-11] MEDS: FENTANYL CITRATE 2,500 MCG in SODIUM CHLORIDE 0.9% 200 ML IV PRN (20:24)
[2021-06-11] MEDS ORDERED: LEVETIRACETAM 1000MG PREMIX 100 ML IV SCH (21:00)
[2021-06-12] VITALS (48 sets, daily range): BP systolic 109–188; BP diastolic 66–150
[2021-06-12] MEDS: LEVETIRACETAM 1000MG PREMIX 100 ML IV SCH (00:09)
[2021-06-12] MEDS: MIDAZOLAM HCL 100 MG in SODIUM CHLORIDE 0.9% 100 ML IV PRN (00:12)
[2021-06-12] MEDS: IPRATROPIUM/ALBUTEROL 0.5-3(2.5)MG/3ML NEB HHN SCH ×4 (00:21→21:11)
[2021-06-12] MEDS: PROPOFOL 10MG/ML 100ML 100 ML IV SCH ×2 (03:30→08:00)
[2021-06-12 06:23] LABS: BASOPHILS % 0.2 % (0.0-2.0); EOSINOPHILS % 0.3 % (0.0-5.0); HEMATOCRIT. 42.7 % (42.0-52.0); HEMOGLOBIN. 14.3 g/dL (14.0-18.0); MEAN CORPUSCULAR HEMOGLOBIN 27.4 pg (28.0-32.0); MEAN CORPUSCULAR VOLUME 81.9 fL (80.0-94.0); MEAN PLATELET VOLUME 8.9 fl (7.4-10.4); MONOCYTES % 8.7 % (2.0-8.0); NEUTROPHILS % 79.8 % (40.0-76.0); PLATELET 175 x1000/uL (130-400); RED BLOOD CELL COUNT 5.22 mill/uL (4.7-6.1); RED CELL DISTRIBUTION WIDTH 14.9 % (11.6-14.6)
[2021-06-12] MEDS: PIPERACILLIN/TAZOBACTAM 3.375 G in DEXTROSE 5% WATER 50 ML IV SCH ×3 (06:25→21:26)
[2021-06-12 06:32] LABS: CHLORIDE 103 mEq/L (98-107)
[2021-06-12] MEDS: FENTANYL CITRATE 2,500 MCG in SODIUM CHLORIDE 0.9% 200 ML IV PRN (07:38)
[2021-06-12 09:28] LABS: BG BASE EXCESS 0.2 mmol/L (-2.0-2.0); BG CARBOXYHEMOGLOBIN 0.2 % (0.5-1.5); BG DEOXYHEMOGLOBIN 2.5 % (0.0-5.0); BG FRACTION INSPIRED OXYGEN 40; BG HCO3 ACT 24.4 mmol/L (22.0-26.0); BG METHEMOGLOBIN 0.3 % (0.0-1.5); BG OXYGEN SATURATION 97.5 % (92.0-98.5); BG PH 7.425 (7.350-7.450); BG PO2 96.9 mmHg (75.0-100.0); BG SAMPLE SITE RIGHT RADIAL; BG TOTAL HEMOGLOBIN 14.6 g/dL (12.0-18.0); BG VENT MODE VENT - AC
[2021-06-12] MEDS: LEVETIRACETAM 1,000 MG in SODIUM CHLORIDE 0.9% 100 ML IV SCH ×2 (10:39→21:27)
[2021-06-12] MEDS: PANTOPRAZOLE SODIUM 40 MG/VIAL IV SCH (10:40)
[2021-06-12] MEDS ORDERED: ACETAMINOPHEN 650MG/20.3ML UDC PO PRN (11:45)
[2021-06-12] MEDS: LORAZEPAM 2MG/ML CPJ IV PRN ×3 (12:00→23:12)
[2021-06-12] MEDS ORDERED: HYDRALAZINE 20MG/ML VIAL IV NR (13:00)
[2021-06-12] MEDS: ENOXAPARIN 40MG/0.4ML SYR SUBCUT SCH (15:50)
[2021-06-12] MEDS: ACETYLCYSTEINE 100MG/ML 10% VIAL 4ML INH SCH (16:32)
[2021-06-13] VITALS (9 sets, daily range): BP systolic 134–168; BP diastolic 60–119
[2021-06-13] MEDS: IPRATROPIUM/ALBUTEROL 0.5-3(2.5)MG/3ML NEB HHN SCH ×2 (00:56→07:58)
[2021-06-13] MEDS: LORAZEPAM 2MG/ML CPJ IV PRN (04:37)
[2021-06-13] MEDS: PIPERACILLIN/TAZOBACTAM 3.375 G in DEXTROSE 5% WATER 50 ML IV SCH (06:00)
[2021-06-13] MEDS: ACETYLCYSTEINE 100MG/ML 10% VIAL 4ML INH SCH (07:58)
[2021-06-13] MEDS ORDERED: DIPHENHYDRAMINE 50MG/ML VIAL IV NR (09:30)
[2021-06-13] MEDS ORDERED: LORAZEPAM 2MG/ML CPJ IV NR (09:30)
[2021-06-13] MEDS ORDERED: HALOPERIDOL LACTATE 5MG/ML VIAL IM NR (09:30)
[2021-06-13] MEDS ORDERED: QUETIAPINE FUMARATE 50MG TABLET PO SCH (21:00)
== END 2021-06-13 09:50 | disposition left against medical advice (07) | DRG 53 ==
LOC: ER 18:47 → MICUNO 20:10 → ENRESERV 06-11 17:56
PROVIDERS: ADMIT Internal Medicine; ATTEND Internal Medicine
PROC: 5A1945Z Respiratory Ventilation, 24-96 Consecutive Hours (ICD-10-PCS; principal; 2021-06-09)
PROC: 0BH17EZ Insertion of Endotracheal Airway into Trachea, Via Natural or Artificial Opening (ICD-10-PCS; 2021-06-09)
DX: G40.901 Epilepsy, unspecified, not intractable, with status epilepticus (principal); J96.00 Acute respiratory failure, unspecified whether with hypoxia or hypercapnia; J69.0 Pneumonitis due to inhalation of food and vomit; G93.40 Encephalopathy, unspecified; K85.90 Acute pancreatitis without necrosis or infection, unspecified; E87.5 Hyperkalemia; K31.84 Gastroparesis; G89.29 Other chronic pain; F12.90 Cannabis use, unspecified, uncomplicated; Z20.822 Contact with and (suspected) exposure to COVID-19; Z53.29 Procedure and treatment not carried out because of patient's decision for other reasons; Z91.19 Patient's noncompliance with other medical treatment and regimen
CPT/HCPCS: 36415; 36600; 71045; 76700; 80048; 80053; 80320; 82375; 82805; 82962; 84484; 85025; 87070; 87426; 94002; 94003; 94640; 99285; C9113; J0330; J0360; J1650; J1953; J2060; J2250; J2543; J2704; J3010; J3490; J7030; J7040; J7050; J7060; J7608; G0480

== ENCOUNTER 2021-06-13 10:52 | Emergency (ER) | payer MEDICAID ==
[~2021-06-13] VITALS: Ht 167.6 cm; Wt 91.0 kg
[~2021-06-13 10:52] MED LIST changes: -SUCCINYLCHOLINE CHLORIDE 200MG/10ML IV ONE
[2021-06-13 12:01] VITALS: BP 154/97
[2021-06-13 12:45] LABS: CHLORIDE 105 mEq/L (98-107)
[2021-06-13 12:47] LABS: BASOPHILS % 0.3 % (0.0-2.0); EOSINOPHILS % 0.6 % (0.0-5.0); HEMATOCRIT. 41.6 % (42.0-52.0); HEMOGLOBIN. 13.5 g/dL (14.0-18.0); LYMPHOCYTES % 8.8 % (20.0-50.0); MEAN CORPUSCULAR HEMOGLOBIN 26.8 pg (28.0-32.0); MEAN CORPUSCULAR VOLUME 82.7 fL (80.0-94.0); MEAN PLATELET VOLUME 8.4 fl (7.4-10.4); MONOCYTES % 10.1 % (2.0-8.0); NEUTROPHILS % 80.2 % (40.0-76.0); PLATELET 180 x1000/uL (130-400); RED BLOOD CELL COUNT 5.04 mill/uL (4.7-6.1); RED CELL DISTRIBUTION WIDTH 14.9 % (11.6-14.6)
[2021-06-13 12:52] LABS: ETHANOL BLOOD < 10 mg/dL
[2021-06-13] MEDS ORDERED: LEVETIRACETAM 500MG TABLET PO ONE (18:15)
[2021-06-13] MEDS ORDERED: LORAZEPAM 2MG/ML CPJ IV SCH (19:30)
[2021-06-13] MEDS ORDERED: FOLIC ACID 1 MG, THIAMINE HCL 400 MG, MVI, ADULT NO.1 10 ML in DEXTROSE 5% WATER 1,000 ML IV SCH (20:00)
== END 2021-06-13 22:11 | disposition left against medical advice (07) ==
LOC: ER 10:52 → CANBEDREQ 06-14 01:08
DX: R56.9 Unspecified convulsions (principal)
CPT/HCPCS: 36415; 80053; 80320; 82962; 85025; 99283; J2060; J3411; J3490; J7070; G0480

== ENCOUNTER 2021-06-15 11:15 | Emergency (ER) | payer MEDICAID ==
[~2021-06-15] VITALS: Ht 177.8 cm; Wt 85.0 kg
[2021-06-15] MEDS ORDERED: SODIUM CHLORIDE 0.9% 1,000 ML IV ONE (11:45)
[2021-06-15] MEDS ORDERED: LEVETIRACETAM 500MG PREMIX 100 ML IV ONE (11:45)
[2021-06-15 12:49] LABS: BASOPHILS % 0.4 % (0.0-2.0); EOSINOPHILS % 2.5 % (0.0-5.0); HEMATOCRIT. 40.1 % (42.0-52.0); HEMOGLOBIN. 13.2 g/dL (14.0-18.0); MEAN CORPUSCULAR VOLUME 82.1 fL (80.0-94.0); MEAN PLATELET VOLUME 7.8 fl (7.4-10.4); MONOCYTES % 9.9 % (2.0-8.0); NEUTROPHILS % 73.2 % (40.0-76.0); PLATELET 230 x1000/uL (130-400); RED BLOOD CELL COUNT 4.89 mill/uL (4.7-6.1); RED CELL DISTRIBUTION WIDTH 14.2 % (11.6-14.6)
[2021-06-15 12:55] LABS: CHLORIDE 104 mEq/L (98-107)
[2021-06-15 13:04] LABS: ETHANOL BLOOD < 10 mg/dL
[2021-06-15 13:08] LABS: CARBAMAZEPINE < 0.5 ug/mL (4-12); PHENOBARBITAL < 2.1 ug/mL (15.0-40.0); VALPROIC ACID < 3.0 ug/mL (50-100)
[2021-06-15 14:14] VITALS: BP 126/73
== END 2021-06-15 15:30 | disposition left against medical advice (07) ==
LOC: ER 11:15
DX: R56.9 Unspecified convulsions (principal); R41.82 Altered mental status, unspecified; F41.9 Anxiety disorder, unspecified
CPT/HCPCS: 36415; 70450; 71045; 80053; 80156; 80165; 80184; 80185; 80320; 82140; 84443; 84484; 85025; 93005; 96365; 99285; J1953; J7030; G0480

== ENCOUNTER 2021-07-21 10:21 | Emergency (ER) | payer MEDICAID ==
[~2021-07-21] VITALS: Ht 170.2 cm; Wt 77.0 kg
[2021-07-21] MEDS ORDERED: LEVETIRACETAM 1000MG PREMIX 100 ML IV ONE (11:00)
[2021-07-21 11:23] LABS: BASOPHILS % 0.3 % (0.0-2.0); EOSINOPHILS % 0.9 % (0.0-5.0); LYMPHOCYTES % 14.5 % (20.0-50.0); MEAN CORPUSCULAR HEMOGLOBIN 28.3 pg (28.0-32.0); MEAN CORPUSCULAR VOLUME 83.1 fL (80.0-94.0); MEAN PLATELET VOLUME 8.5 fl (7.4-10.4); MONOCYTES % 5.9 % (2.0-8.0); NEUTROPHILS % 78.4 % (40.0-76.0); PLATELET 190 x1000/uL (130-400); RED BLOOD CELL COUNT 5.29 mill/uL (4.7-6.1); RED CELL DISTRIBUTION WIDTH 15.7 % (11.6-14.6)
[2021-07-21 11:27] LABS: CHLORIDE 100 mEq/L (98-107)
[2021-07-21 11:32] LABS: ETHANOL BLOOD < 10 mg/dL
[2021-07-21] MEDS ORDERED: ONDANSETRON HCL 4MG/2ML INJ IV PRN (13:15)
[2021-07-21] MEDS ORDERED: LORAZEPAM 0.5MG TABLET PO PRN (13:15)
[2021-07-21] MEDS ORDERED: IPRATROPIUM/ALBUTEROL 0.5-3(2.5)MG/3ML NEB HHN PRN (13:15)
[2021-07-21] MEDS ORDERED: ACETAMINOPHEN 325MG TABLET PO PRN ×2 (13:15)
[2021-07-21] MEDS ORDERED: CLONIDINE 0.1MG TABLET PO PRN (13:15)
[2021-07-21] MEDS ORDERED: DOCUSATE SODIUM 100MG CAPSULE PO PRN (13:15)
[2021-07-21 15:30] VITALS: BP 137/84
== END 2021-07-21 18:00 | disposition left against medical advice (07) ==
LOC: ER 10:21 → EDBEDREQ 13:05 → EDBEDREQTM 13:05 → CANBEDREQ 17:58 → ER 18:00
DX: R56.9 Unspecified convulsions (principal); Z20.822 Contact with and (suspected) exposure to COVID-19
CPT/HCPCS: 36415; 71045; 80053; 80320; 82962; 85025; 87426; 93005; 96365; 99285; J1953; G0480

== ENCOUNTER 2021-08-11 12:34 | Emergency (ER) | payer MEDICAID ==
[~2021-08-11] VITALS: Ht 167.6 cm; Wt 82.0 kg
[2021-08-11] MEDS ORDERED: ONDANSETRON HCL 4MG/2ML INJ IV ONE (13:15)
[2021-08-11] MEDS ORDERED: SODIUM CHLORIDE 0.9% 1,000 ML IV ONE (13:15)
[2021-08-11] MEDS ORDERED: KETOROLAC 15MG/ML VIAL IV ONE (13:15)
[2021-08-11 14:07] LABS: BASOPHILS % 0.4 % (0.0-2.0); EOSINOPHILS % 1.1 % (0.0-5.0); HEMATOCRIT. 39.2 % (42.0-52.0); LYMPHOCYTES % 13.2 % (20.0-50.0); MEAN CORPUSCULAR HEMOGLOBIN 27.6 pg (28.0-32.0); MEAN CORPUSCULAR VOLUME 82.9 fL (80.0-94.0); MEAN PLATELET VOLUME 8.4 fl (7.4-10.4); MONOCYTES % 5.7 % (2.0-8.0); NEUTROPHILS % 79.6 % (40.0-76.0); PLATELET 179 x1000/uL (130-400); RED BLOOD CELL COUNT 4.73 mill/uL (4.7-6.1); RED CELL DISTRIBUTION WIDTH 15.7 % (11.6-14.6)
[2021-08-11 14:17] LABS: CHLORIDE 105 mEq/L (98-107)
[2021-08-11 18:40] VITALS: BP 125/77
== END 2021-08-11 19:06 | disposition left against medical advice (07) ==
LOC: ER 12:34
DX: K86.1 Other chronic pancreatitis (principal); F41.9 Anxiety disorder, unspecified; Z79.899 Other long term (current) drug therapy
CPT/HCPCS: 36415; 71045; 80053; 83690; 85025; 96374; 99284; J1885; J7030; Z7610

== ENCOUNTER 2022-02-12 08:38 | Emergency (ER) | payer MEDICAID ==
[~2022-02-12] VITALS: Ht 172.7 cm; Wt 80.0 kg
[2022-02-12] MEDS ORDERED: ONDANSETRON HCL 4MG/2ML INJ IV STA (08:48)
[2022-02-12] MEDS ORDERED: KETOROLAC 30MG/ML VIAL IV STA (08:48)
[2022-02-12 09:24] LABS: BASOPHILS % 0.2 % (0.0-2.0); EOSINOPHILS % 0.9 % (0.0-5.0); HEMATOCRIT. 42.6 % (42.0-52.0); HEMOGLOBIN. 14.2 g/dL (14.0-18.0); LYMPHOCYTES % 13.1 % (20.0-50.0); MEAN CORPUSCULAR HEMOGLOBIN 27.6 pg (28.0-32.0); MEAN PLATELET VOLUME 8.1 fl (7.4-10.4); NEUTROPHILS % 80.8 % (40.0-76.0); PLATELET 203 x1000/uL (130-400); RED BLOOD CELL COUNT 5.13 mill/uL (4.7-6.1); RED CELL DISTRIBUTION WIDTH 16.5 % (11.6-14.6)
[2022-02-12 09:31] LABS: CHLORIDE 109 mEq/L (98-107)
[2022-02-12 09:33] LABS: INR 1.1; PROTHROMBIN TIME 11.6 sec (9.6-11.0)
[2022-02-12] MEDS ORDERED: TOPUD PO (10:54)
[2022-02-12 10:57] VITALS: BP 109/64
== END 2022-02-12 11:10 | disposition home or self-care (01) ==
LOC: ER 08:38
DX: R10.84 Generalized abdominal pain (principal); F14.10 Cocaine abuse, uncomplicated; F12.10 Cannabis abuse, uncomplicated; F41.9 Anxiety disorder, unspecified; G40.909 Epilepsy, unspecified, not intractable, without status epilepticus; Z87.19 Personal history of other diseases of the digestive system
CPT/HCPCS: 36415; 74176; 80053; 83690; 85025; 85610; 96374; 96375; 99285; J1885; J2405

== ENCOUNTER 2022-03-04 08:27 | Emergency (ER) | payer MEDICAID ==
[~2022-03-04] VITALS: Ht 170.2 cm; Wt 84.0 kg
[~2022-03-04 08:27] MED LIST changes: +TOPUD PO
[2022-03-04 08:38] VITALS: BP 148/82
== END 2022-03-04 13:30 | disposition left against medical advice (07) ==
LOC: ER 10:26
DX: R10.84 Generalized abdominal pain (principal); R11.0 Nausea; F41.9 Anxiety disorder, unspecified; F14.10 Cocaine abuse, uncomplicated; F12.10 Cannabis abuse, uncomplicated
CPT/HCPCS: 99283

== ENCOUNTER 2022-03-10 22:36 | Emergency (ER) | payer MEDICAID ==
[~2022-03-10] VITALS: Ht 177.8 cm; Wt 95.0 kg
[2022-03-11] MEDS ORDERED: ONDANSETRON 4MG ODT PO STA (00:44)
[2022-03-11] MEDS ORDERED: KETOROLAC 60MG/2ML VIAL IM STA (00:44)
[2022-03-11 02:17] VITALS: BP 142/82
== END 2022-03-11 02:18 | disposition home or self-care (01) ==
LOC: ER 22:52
DX: R10.9 Unspecified abdominal pain (principal); F14.10 Cocaine abuse, uncomplicated; F12.10 Cannabis abuse, uncomplicated
CPT/HCPCS: 96372; 99283; J1885; Q0162

== ENCOUNTER 2022-03-17 13:53 | Emergency (ER) | payer MEDICAID ==
[~2022-03-17] VITALS: Ht 175.3 cm; Wt 79.0 kg
[2022-03-17 14:06] VITALS: BP 150/95
[2022-03-17] MEDS ORDERED: VISCOUS LIDOCAINE 2% 15 ML UDC PO STA (14:48)
[2022-03-17] MEDS ORDERED: MAGNESIUM/ALUMINUM HYDROXIDE/SIMETHICONE 30ML UDC PO STA (14:48)
[2022-03-17] MEDS ORDERED: FAMOTIDINE 20MG TABLET PO ONE (15:00)
== END 2022-03-17 16:28 | disposition left against medical advice (07) ==
LOC: ER 14:06
DX: R10.9 Unspecified abdominal pain (principal); R56.9 Unspecified convulsions; Z87.19 Personal history of other diseases of the digestive system
CPT/HCPCS: 93005; 99283

== ENCOUNTER 2022-03-18 08:48 | Emergency (ER) | payer MEDICAID ==
[~2022-03-18] VITALS: Ht 170.2 cm; Wt 79.0 kg
[2022-03-18 08:50] VITALS: BP 155/80
[2022-03-18] MEDS ORDERED: MAGNESIUM/ALUMINUM HYDROXIDE/SIMETHICONE 30ML UDC PO STA (08:57)
[2022-03-18] MEDS ORDERED: ONDANSETRON 4MG ODT PO STA (08:57)
[2022-03-18] MEDS ORDERED: ONDANSETRON HCL 4MG/2ML INJ IV STA (09:38)
[2022-03-18 09:53] LABS: BASOPHILS % 0.2 % (0.0-2.0); EOSINOPHILS % 0.1 % (0.0-5.0); HEMATOCRIT. 44.7 % (42.0-52.0); HEMOGLOBIN. 14.1 g/dL (14.0-18.0); LYMPHOCYTES % 7.7 % (20.0-50.0); MEAN CORPUSCULAR HEMOGLOBIN 27.2 pg (28.0-32.0); MEAN CORPUSCULAR VOLUME 86.1 fL (80.0-94.0); MEAN PLATELET VOLUME 8.6 fl (7.4-10.4); MONOCYTES % 3.2 % (2.0-8.0); NEUTROPHILS % 88.8 % (40.0-76.0); PLATELET 259 x1000/uL (130-400); RED BLOOD CELL COUNT 5.19 mill/uL (4.7-6.1); RED CELL DISTRIBUTION WIDTH 16.1 % (11.6-14.6)
[2022-03-18 09:56] LABS: CHLORIDE 101 mEq/L (98-107)
[2022-03-18 10:03] LABS: ETHANOL BLOOD < 10 mg/dL
== END 2022-03-18 11:26 | disposition left against medical advice (07) ==
LOC: ER 08:55
DX: R11.2 Nausea with vomiting, unspecified (principal); F14.10 Cocaine abuse, uncomplicated; F12.10 Cannabis abuse, uncomplicated; Z79.899 Other long term (current) drug therapy
CPT/HCPCS: 36415; 80053; 80320; 83690; 85025; 96374; 99283; J2405; Z7610; G0480

== ENCOUNTER 2022-03-18 14:15 | Emergency (ER) | payer MEDICAID ==
[~2022-03-18] VITALS: Ht 172.7 cm; Wt 83.0 kg
[2022-03-18 15:46] LABS: BASOPHILS % 0.2 % (0.0-2.0); HEMATOCRIT. 40.5 % (42.0-52.0); HEMOGLOBIN. 13.6 g/dL (14.0-18.0); MEAN CORPUSCULAR HEMOGLOBIN 28.1 pg (28.0-32.0); MEAN CORPUSCULAR VOLUME 83.6 fL (80.0-94.0); MEAN PLATELET VOLUME 8.3 fl (7.4-10.4); MONOCYTES % 4.4 % (2.0-8.0); NEUTROPHILS % 87.4 % (40.0-76.0); PLATELET 198 x1000/uL (130-400); RED BLOOD CELL COUNT 4.85 mill/uL (4.7-6.1); RED CELL DISTRIBUTION WIDTH 15.8 % (11.6-14.6)
[2022-03-18 15:51] LABS: CHLORIDE 96 mEq/L (98-107)
[2022-03-18 15:59] LABS: ETHANOL BLOOD < 10 mg/dL
[2022-03-18] MEDS ORDERED: FAMOTIDINE 20MG/2ML VIAL IV STA (16:43)
[2022-03-18] MEDS ORDERED: MAGNESIUM/ALUMINUM HYDROXIDE/SIMETHICONE 30ML UDC PO STA (16:43)
[2022-03-18] MEDS ORDERED: VISCOUS LIDOCAINE 2% 15 ML UDC PO STA (16:43)
[2022-03-18] MEDS ORDERED: METOCLOPRAMIDE HCL 10MG/2ML VIAL IV STA (16:43)
[2022-03-18] MEDS ORDERED: FAMOTIDINE 20MG TABLET PO ONE (17:45)
[2022-03-18] MEDS ORDERED: ONDANSETRON HCL 4MG TABLET PO ONE (17:45)
[2022-03-18 18:49] VITALS: BP 124/63
== END 2022-03-18 18:53 | disposition home or self-care (01) ==
LOC: ER 14:20
DX: R10.13 Epigastric pain (principal); F14.10 Cocaine abuse, uncomplicated; F12.10 Cannabis abuse, uncomplicated; Y90.0 Blood alcohol level of less than 20 mg/100 ml; Z79.899 Other long term (current) drug therapy; F10.20 Alcohol dependence, uncomplicated
CPT/HCPCS: 36415; 80053; 80307; 80320; 80329; 83690; 84484; 85025; 93005; 99284; Q0162; G0480